=== PATIENT | male | born 2000 | race African-American/Black ===

== ENCOUNTER 2020-02-03 15:20 | Emergency (ER) | payer OTHER ==
[~2020-02-03] VITALS: Ht 188 cm; Wt 127.0 kg
[~2020-02-03 15:20] MED LIST: ANTI-DIARRHEAL2 MG PO; BACITRACIN15 GM TOPIC; HYDROCORTISONE-30 GM TOPIC
[2020-02-03 15:44] VITALS: BP 124/73
--- NOTE | 2020-02-03 15:45 | NUR ---
ED Nurse Note:pt. came with dark discolotation spots on his lower legs, blood sugar is 91, pt. is ambulatory, A/Ox4
--- NOTE | 2020-02-03 15:56 | Emergency Room Report ---
History of Present Illness General Chief Complaint: Skin Rash/Abscess Source: Patient Present Illness HPI 19-year-old male with no no signal past medical history here complaining of pruritus of bilateral ankles after being bit by mosquitoes 2 weeks ago. Some skin rash noted which appears to be healing insect bites on both ankles. Patient reports that he stands on his feet a lot and at the end of the day he has a lot of pain throughout the legs denies any pain upon palpation of the rash. Also complains of occasional tingling in both legs however reports that after he takes a long shower he feels better and after he elevates his legs he feels better. Denies any history of diabetes, no pedal edema noted, denies any pain at this time. Denies any ankles twisting or injury and refuses any x-ray. Has not taken medication for symptom relief. 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 Patient History Past Medical History: see triage record Past Surgical History: none Pertinent Family History: none Immunizations: UTD Reviewed Nursing Documentation: PMH: Agreed; PSxH: Agreed Nursing Documentation-PMH Past Medical History: No Stated History Review of Systems All Other Systems: negative except mentioned in HPI Physical Exam Vital Signs Date Time Temp Pulse Resp B/P (MAP) Pulse Ox O2 Delivery O2 Flow Rate FiO2 02/03/20 15:24 98.2 76 16 124/73 (90) 98 Room Air Sp02 EP Interpretation: reviewed, normal General Appearance: no apparent distress, alert, GCS 15, non-toxic Head: normocephalic, atraumatic Eyes: bilateral eye normal inspection, bilateral eye PERRL ENT: hearing grossly normal, normal pharynx, no angioedema, normal voice Neck: full range of motion, supple/symm/no masses Respiratory: chest non-tender, lungs clear, normal breath sounds, no rhonchi, no respiratory distress, no retraction, speaking full sentences Cardiovascular #1: regular rate, rhythm, no edema Gastrointestinal: non tender, no organomegaly Genitourinary: no CVA tenderness Musculoskeletal: back normal, no calf tenderness, pelvis stable, no lower extremity edema, non-tender, other - No pitting edema noted Neurologic: alert, motor strength/tone normal, oriented x3, sensory intact, res ponsive, speech normal Psychiatric: judgement/insight normal, memory normal, mood/affect normal, no suicidal/homicidal ideation Skin: rash - Healing insect bite bilateral lower extremities Lymphatic: no adenopathy Medical Decision Making PA Attestation All my diagnosis and treatment plans were reviewed ad discussed with my supervising physician Dr. Perdomo Diagnostic Impression: Primary Impression: Complaint of paresthesia Additional Impressions: Skin rash Muscle cramp ER Course 19-year-old male with no no signal past medical history here complaining of pruritus of bilateral ankles after being bit by mosquitoes 2 weeks ago. Some skin rash noted which appears to be healing insect bites on both ankles. Patient reports that he stands on his feet a lot and at the end of the day he has a lot of pain throughout the legs denies any pain upon palpation of the rash. Also complains of occasional tingling in both legs however reports that after he takes a long shower he feels better and after he elevates his legs he feels better. Denies any history of diabetes, no pedal edema noted, denies any pain at this time. Denies any ankles twisting or injury and refuses any x-ray. Has not taken medication for symptom relief. Denies any drug use, tobacco smoke, alcohol intake Ddx considered but are not limited to: Eczema, scabies, lice, neuropathy, paresthesia of skin, ankle sprain versus ankle strain versus muscle cramp, versus fracture Vital signs: are WNL, pt. is afebrile H&PE are most consistent with: Paresthesia skin rash secondary to insect bite healing, noninfected, muscle cramp ORDERS: Prednisone, hydrocortisone cream, Robaxin ED INTERVENTIONS: Accu-Chek DISCHARGE: At this time pt. is stable for d/c to home. Will provide printed patient care instructions, and any necessary prescriptions. Care plan and follow up instructions have been discussed with the patient prior to discharge. Patient to follow primary doctor for complete blood work and further evaluation, also further imaging may be needed. Patient to elevate legs, if worsening symptoms return to the emergency room. Also continue taking Motrin Last Vital Signs Date Time Temp Pulse Resp B/P (MAP) Pulse Ox O2 Delivery O2 Flow Rate FiO2 02/03/20 15:24 98.2 76 16 124/73 (90) 98 Room Air Disposition: HOME, SELF-CARE Condition: Stable Scripts Methocarbamol* (ROBAXIN-500*) 500 Mg Tablet 500 MG ORAL TID PRN for For Pain, #15 TAB 0 Refills Prov: Jo Ann Briones 02/03/20 Hydrocortisone/Aloe (Hydrocortisone/Aloe 1% Cream*) Y Cr 1 APPLIC TOPIC Q6H PRN for Itching, #30 GM Prov: Jo Ann Briones 02/03/20 Prednisone* (PREDNISONE*) 20 Mg Tablet 40 MG ORAL DAILY for 5 Days, #10 TAB Prov: Jo Ann Briones 02/03/20 Patient Instructions: Muscle Cramps and Spasms, [id number], Rash Additional Instructions: Take medication as directed, elevate your legs at the end of your shift, follow- up with primary care provider, complete blood work may be needed to do as well as allergy testing with your symptoms can be exacerbated by certain allergen that you come in contact with on daily basis. If worsening symptoms return to the emergency room Jo Ann Briones Feb 03, 2020 15:56
[2020-02-03] MEDS ORDERED: PREDNISONE20 MG ORAL (15:58)
[2020-02-03] MEDS ORDERED: ROBAXIN-500MG ORAL (15:58)
[2020-02-03] MEDS ORDERED: HYDROCORTISONE-30 GM TOPIC (15:58)
[2020-02-03 16:00] VITALS: BP 124/73
--- NOTE | 2020-02-03 16:00 | NUR ---
ED Nurse Note: Pt cleared by health care Provider for discharge. DC instructions/prescription was given and explained to pt and verbalized understanding of teachings. All medical deviecs such as ID band removed. Pt is AAO x4, ambulatory and left with all personal belongings.
== END 2020-02-03 16:00 | disposition home or self-care (01) ==
LOC: EMR 15:58
DX: R21 Rash and other nonspecific skin eruption (principal); R20.2 Paresthesia of skin; R25.2 Cramp and spasm; S80.862A Insect bite (nonvenomous), left lower leg, initial encounter; S80.861A Insect bite (nonvenomous), right lower leg, initial encounter; W57.XXXA Bitten or stung by nonvenomous insect and other nonvenomous arthropods, initial encounter; Y92.9 Unspecified place or not applicable
CPT/HCPCS: 82962; Z7502; 99283